=== PATIENT | male | born 1985 | race Caucasian/White ===

== ENCOUNTER 2022-01-25 13:28 | Emergency (ER) | payer BC ==
[~2022-01-25] VITALS: Ht 172.7 cm; Wt 67.3 kg
[2022-01-25 13:46] VITALS: BP 122/85
[2022-01-25] MEDS ORDERED: IBUP-1986 PO (14:43)
[2022-01-25] MEDS ORDERED: DOXY-1 PO (14:43)
[2022-01-25] MEDS ORDERED: DOXYCYCLINE 100MG CAPSULE PO STA (14:47)
[2022-01-25] MEDS ORDERED: ibuprofen tablet 400 MG TABLET PO ONE (14:50)
== END 2022-01-25 14:56 | disposition home or self-care (01) ==
LOC: ER 13:29
DX: L02.01 Cutaneous abscess of face (principal)
CPT/HCPCS: 10060; 87070; 87077; 87186; 99283